=== PATIENT | female | born 1990 | race Two or more races ===

== ENCOUNTER 2017-01-10 06:30 | Inpatient (IN) | payer OTHER ==
[2017-01-10 08:38] LABS: BASOPHIL 0.2 % (0-2.0); EOSINOPHIL 0.2 % (0-4.5); MCH 32.7 pg (25.7-33.7); MCHC 34.7 g/dl (32.0-36.0); MEAN CELL VOLUME 94.3 fl (80-96); MEAN PLT VOLUME 6.7 fl (7.5-11.1); NEUTROPHILS 80.3 % (42.8-82.8); PLATELET COUNT 201 K/MM3 (134-434); RDW 14.2 % (11.6-15.6); WHITE BLOOD COUNT 11.6 K/mm3 (4.0-10.0)
[2017-01-10 08:50] LABS: INR 0.96 (0.82-1.09); PROTHROMBIN TIME (PATIENT) 10.6 SEC (9.98-11.88)
[2017-01-10 08:53] LABS: ACTIVATED PTT 26.2 SECONDS (26.9-34.4)
--- NOTE | 2017-01-10 09:04 | HP ---
Past Medical History - Primary Care Physician PCP:: Ino Cruz - Admission Chief Complaint: labor History of Present Illness: 26 yo f c/o contraction since last night, no rom, no bleeding, cx 2 cm,100 , vx 0 , mi , fhr cat 1, irregular contraction History Source: Patient, Significant Other Limitations to Obtaining History: Language Barrier - Past Medical History ...: 2 ...Para: 0 ...Term: 0 ...: 0 ...Spon : 0 ...Induced : 0 ...LMP: 04/03/16 ...EDC by Sono: 01/08/17 - Past Surgical History Hx Myomectomy: No Hx Transabdominal Cerclage: No - Social History Usual Living Arrangement: Yes: With Spouse History of Recent Travel: No Home Medications - Allergies Allergies/Adverse Reactions: Allergies Allergy/AdvReac Type Severity Reaction Status Date / Time No Known Allergies Allergy Verified 01/10/17 07:14 - Home Medications Home Medications: Ambulatory Orders Ferrous Sulfate [Feosol] 325 mg PO DAILY 01/09/17 Vitamins (Sjr) - 1 tab PO DAILY 01/09/17 Review of Systems - Review of Systems Constitutional: reports: No Symptoms Eyes: reports: No Symptoms HENT: reports: No Symptoms Neck: reports: No Symptoms Cardiovascular: reports: No Symptoms Respiratory: reports: No Symptoms Gastrointestinal: reports: No Symptoms Genitourinary: reports: No Symptoms Breasts: reports: No Symptoms Reported Musculoskeletal: reports: No Symptoms Integumentary: reports: No Symptoms Neurological: reports: No Symptoms Endocrine: reports: No Symptoms Physical Exam - Maternity Vital Signs: Vital Signs Temperature 98.0 F 01/10/17 08:00 Pulse Rate 110 H 01/10/17 08:00 Respiratory Rate 18 01/10/17 08:00 Blood Pressure 121/84 01/10/17 08:00 O2 Sat by Pulse Oximetry (%) Constitutional: Yes: Well Nourished, No Distress, Calm Eyes: Yes: WNL, Conjunctiva Clear, EOM Intact HENT: Yes: WNL, Atraumatic, Normocephalic Neck: Yes: WNL, Supple, Trachea Midline Cardiovascular: Yes: WNL, Regular Rate and Rhythm Breast(s): Yes: WNL - Abdominal Exam/OB Fundal Height: 40 Number of Fetuses: Single Presentation: Vertex Regularity: Regular Intensity: Mod/Strong Monitor Mode: External Heart Rate Location: LLQ Accelerations: Uniform Decelerations: None - Vaginal Exam/OB Vaginal Bleediing: No Speculum Exam: No Dilatation (cm): 2 cm Effacement (%): 100 Amniotic Membrane Status: Bulging Presentation: Vertex/Position Station: 0 - Physical Exam Extremities: Yes: WNL Edema: Yes Edema: LLE: Trace, RLE: Trace - Labs Lab Results: CBC, BMP 01/10/17 08:25 Hemorrhage Risk Assessment - Risk Factors Risk Score: 1 Risk Level: Medium Risk Problem List - Problems (1) Post term over 40 weeks Code(s): O48.0 - POST-TERM (2) Labor established Code(s): PZU9829 - Assessment/Plan plan admit,, fhm, pain management
[2017-01-10] MEDS ORDERED: BUTORPHANOL TARTRATE 1 MG/ML VIAL IVPUSH PRN (09:05)
[2017-01-10] MEDS ORDERED: DEXTROSE 5%-LACTATED RINGERS 1,000 ML IV SCH (09:15)
[2017-01-10 09:22] LABS: CALCIUM 8.7 mg/dL (8.5-10.1); CREATININE 0.5 mg/dL (0.55-1.02)
[2017-01-10 09:39] VITALS: BMI 26.4
[2017-01-10] MEDS ORDERED: OXYTOCIN 15 UNITS/ LR 250 ML 250 ML IVPB SCH (12:30)
[2017-01-10] MEDS ORDERED: BENZOCAINE 20% 57 GM BOTTLE TP PRN (13:07)
[2017-01-10] MEDS ORDERED: BISACODYL 10 MG SUPP.RECT RC PRN (13:07)
[2017-01-10] MEDS ORDERED: WITCH HAZEL 50% (TUCKS) 40 PAD/JAR PAD TP PRN (13:07)
[2017-01-10] MEDS ORDERED: METHYLERGONOVINE MALEATE 0.2 MG/1 ML AMP IM PRN (13:07)
[2017-01-10] MEDS ORDERED: BENZOCAINE 28 GM HEMORRHOIDAL OINTMENT TP PRN (13:07)
[2017-01-10] MEDS ORDERED: OXYTOCIN 20 UNITS in 0.9% NS 1,000 ML IV SCH (13:15)
[2017-01-10] MEDS: IBUPROFEN 600 MG TABLET (FP) PO PRN (14:00)
[2017-01-10] MEDS: ACETAMINOPHEN 325 MG TABLET (FP) PO PRN (14:00)
[2017-01-11] MEDS: IBUPROFEN 600 MG TABLET (FP) PO PRN ×3 (01:36→16:24)
[2017-01-11] MEDS: ACETAMINOPHEN 325 MG TABLET (FP) PO PRN ×3 (01:37→16:23)
--- NOTE | 2017-01-11 03:30 | PN ---
Post Progress Note Type of Delivery: Vital Signs: Vital Signs Temperature 98.1 F 01/11/17 02:00 Pulse Rate 84 01/11/17 02:00 Respiratory Rate 18 01/11/17 02:00 Blood Pressure 131/84 01/11/17 02:00 O2 Sat by Pulse Oximetry (%) 100 01/10/17 15:00 Breast Exam: Yes: Soft Uterus: Yes: Fundus Firm Abdomen/GI: Yes: Abdomen soft Lochia: Yes: Rubra Lochia, amount: Small Extremities: Yes: Calves non-tender Perineum: Yes: Intact Activity: Ambulating - Labs Labs: CBC WBC 11.6 K/mm3 (4.0-10.0) H 01/10/17 08:25 RBC 4.04 M/mm3 (3.60-5.2) 01/10/17 08:25 Hgb 13.2 GM/dL (10.7-15.3) 01/10/17 08:25 Hct 38.1 % (32.4-45.2) 01/10/17 08:25 MCV 94.3 fl (80-96) 01/10/17 08:25 MCHC 34.7 g/dl (32.0-36.0) 01/10/17 08:25 RDW 14.2 % (11.6-15.6) 01/10/17 08:25 Plt Count 201 K/MM3 (134-434) 01/10/17 08:25 MPV 6.7 fl (7.5-11.1) L 01/10/17 08:25 Neutrophils % 80.3 % (42.8-82.8) 01/10/17 08:25 Lymphocytes % 13.7 % (8-40) 01/10/17 08:25 Monocytes % 5.6 % (3.8-10.2) 01/10/17 08:25 Eosinophils % 0.2 % (0-4.5) 01/10/17 08:25 Basophils % 0.2 % (0-2.0) 01/10/17 08:25 Assessment/Plan as above oob reg diet
[2017-01-11 09:02] LABS: BASOPHIL 0.2 % (0-2.0); EOSINOPHIL 1.5 % (0-4.5); MCH 32.4 pg (25.7-33.7); MCHC 34.5 g/dl (32.0-36.0); MEAN PLT VOLUME 6.9 fl (7.5-11.1); NEUTROPHILS 69.2 % (42.8-82.8); PLATELET COUNT 176 K/MM3 (134-434); RDW 14.2 % (11.6-15.6); WHITE BLOOD COUNT 13.9 K/mm3 (4.0-10.0)
[2017-01-11] MEDS ORDERED: SENNOSIDES/DOCUSATE COMBO (SENNA PLUS) TABLET (UD) PO PRN (22:00)
[2017-01-12 12:00] VITALS: BP 110/65; PULSE 84; TEMP 98
--- NOTE | 2017-01-23 19:05 | DS ---
Physical Exam-DEBATE DIRECTOR Vital Signs: Vital Signs Temperature 98 F 01/12/17 10:00 Pulse Rate 84 01/12/17 10:00 Respiratory Rate 20 01/12/17 10:00 Blood Pressure 110/65 01/12/17 10:00 O2 Sat by Pulse Oximetry (%) 100 01/10/17 15:00 Constitutional: Yes: Well Nourished, No Distress, Calm Eyes: Yes: WNL, Conjunctiva Clear, EOM Intact HENT: Yes: WNL, Atraumatic, Normocephalic Neck: Yes: WNL, Supple, Trachea Midline Cardiovascular: Yes: WNL, Regular Rate and Rhythm Respiratory: Yes: WNL, Regular, CTA Bilaterally Gastrointestinal: Yes: WNL ...Rectal Exam: Yes: WNL Renal/: Yes: WNL ....Post : Yes: Uterus firm, Uterus non-tender, Slight lochia rubra Breast(s): Yes: WNL Musculoskeletal: Yes: WNL Extremities: Yes: WNL Edema: No Integumentary: Yes: WNL Neurological: Yes: WNL, Alert, Oriented ...Motor Strength: WNL Psychiatric: Yes: WNL, Alert, Oriented Labs: CBC, BMP 01/11/17 08:00 01/10/17 08:25 Delivery - Delivery Vaginal Delivery: Spontaneous (no complication) Type of Anesthesia: Local Episiotomy/Laceration: Midline Delivery, Single - Stages of Labor Date 1st Stage Initiatied: 01/10/17 Time 1st Stage Initiated: 06:00 Date 2nd Stage Initiated: 01/10/17 Time 2nd Stage Initiated: 12:40 Date of Delivery: 01/10/17 Time of Delivery: 12:55 Time Placenta Delivered: 13:00 Placenta: Yes: Spontaneous - Condition of Validation Intern/Field Case Manager Present: No Infant Gender: Male Weight: 6 lb 10 oz Total Hours ROM (Hrs/Mins): 3/30 - 1 Minute Total Score: 9 5 Minutes Total Score: 9 - [place] Feeding Plan Initial Plan: Exclusive throughout hospitalization Discharge Summary Reason For Visit: LABOR Procedures: Principal: Condition: Good - Instructions Diet, Activity, Other Instructions: return to clinic in 6 weeks Referrals: Storm Ramirez MD [Staff Physician] - Disposition: HOME - Home Medications Comprehensive Discharge Medication List: Ambulatory Orders Ferrous Sulfate [Feosol] 325 mg PO DAILY 01/09/17 Vitamins (Sjr) - 1 tab PO DAILY 01/09/17
== END 2017-01-12 12:00 | disposition home or self-care (01) | DRG 560 ==
LOC: JDEL 06:30 → JLDR 07:30 → J3W 14:29
PROVIDERS: ADMIT Obstetrics & Gynecology; ATTEND Obstetrics & Gynecology
PROC: 10E0XZZ Delivery of Products of Conception, External Approach (ICD-10-PCS; principal; 2017-01-10)
PROC: 0W8NXZZ Division of Female Perineum, External Approach (ICD-10-PCS; 2017-01-10)
DX: O48.0 Post-term pregnancy (principal); Z3A.40 40 weeks gestation of pregnancy; Z37.0 Single live birth
CPT/HCPCS: 36415; 59025; 59409; 80048; 85025; 85461; 85610; 85730; 86593; 86850; 86900; 86901; 86999